=== PATIENT | male | born 1985 | race American Indian/Alaskan Native ===

== ENCOUNTER 2016-12-23 11:27 | Emergency (ER) | payer SELFPAY ==
--- NOTE | 2016-12-23 12:17 | Emergency Department Report ---
Chief Complaint: Headache Stated Complaint: ANXIETY AND HEADACHE Time Seen by Provider: 12/23/16 12:15 - HPI History of Present Illness: PT c/o feeling stuck because of his anxiety. PT states he has been having problems with anxiety for 3 years. PT states he feels really nervous. - ROS Review of Systems: + headache + nervous -si/hi - Exam Physical Exam: PT is alert in triage rapid speech gcs 15 MSE screening note: Focused history and physical exam performed. Due to findings the following was ordered: labs, mhe ED Disposition for MSE Condition: Stable
[2016-12-23 12:19] VITALS: BP 117/75
[2016-12-23 12:46] LABS: Urine Drugs of Abuse Note Disclamer
[2016-12-23 13:16] LABS: Bilirubin,Urine NEG (Negative); Blood,Urine NEG (Negative); Ketones,Urine NEG (Negative); Leukocyte Esterase,Urine NEG (Negative); Mucus,Urine 1+ /HPF; Nitrite,Urine NEG (Negative)
[2016-12-23 14:00] LABS: Basophils % (Auto) 0.9 % (0.0-1.8); Eosinophils % (Auto) 2.1 % (0.0-4.3); Hematocrit 42.7 % (35.5-45.6); Hemoglobin 14.3 gm/dl (11.8-15.2); Mean Corpuscular HGB Conc 33 % (32-34); Mean Corpuscular Hemoglobin 31 pg (28-32); Mean Corpuscular Volume 91 fl (84-94); Platelet Count 204 K/mm3 (140-440); Red Blood Count 4.68 M/mm3 (3.65-5.03); Red Cell Distribution Width 14.4 % (13.2-15.2); White Blood Count 4.9 K/mm3 (4.5-11.0)
[2016-12-23 14:27] LABS: Alanine Aminotransferase 13 units/L (7-56); Albumin 4.6 g/dL (3.9-5); Albumin/Globulin Ratio 1.6 %; Alkaline Phosphatase 71 units/L (35-129); Anion Gap 18 mmol/L; BUN/Creatinine Ratio 10.83; Blood Urea Nitrogen 13 mg/dL (9-20); Calcium 9.3 mg/dL (8.4-10.2); Carbon Dioxide 28 mmol/L (22-30); Chloride 97.3 mmol/L (98-107); Glucose 77 mg/dL (75-100); Potassium 4.2 mmol/L (3.6-5.0); Sodium 139 mmol/L (137-145); Total Protein 7.5 g/dL (6.3-8.2)
--- NOTE | 2016-12-23 17:48 | Emergency Department Report ---
ED Anxiety HPI - General Chief Complaint: Anxiety Stated Complaint: ANXIETY AND HEADACHE Time Seen by Provider: 12/23/16 12:15 Source: patient Mode of arrival: Ambulatory - History of Present Illness Initial Comments: 31-year-old male past medical history bipolar disorder presents with complaint of chronic anxiety. Patient states that he has tried to follow up with outpatient psychiatry but has not been able to do so for personal reasons. Patient is awake alert and oriented 3 has somewhat pressured speech but is otherwise cooperative and calm. Patient denies any current homicidal or suicidal ideation. States he has been feeling a little more anxious than usual lately particularly at work. Patient denies any auditory or visual hallucinations. Patient is requesting Adderall as he states he is taken this in the past and it has helped him focus. I asked patient if he had a official prescription for Adderall and he stated that he does not that he has used it from friends and family members in the past. Patient denies any fevers chills nausea vomiting chest pain although he does state he does get palpitations occasionally when he is severely anxious. Currently does not feel particularly anxious. Denies headache blurry vision which chest pain. Patient is adamant that medications help his symptoms. MD Complaint: anxiety Onset/Timin -: year(s) Symptoms: palpitations Place: home, work Previous History of Same: Yes Severity: moderate Quality: intermittant Provoking factors: work/job stress - Related Data Home Medications: Previous Rx's Medication Instructions Recorded Last Taken Type Hydroxyzine HCl 25 mg PO Q8H PRN #20 tablet 12/23/16 Unknown Rx Allergies/Adverse Reactions: Allergies Allergy/AdvReac Type Severity Reaction Status Date / Time No Known Allergies Allergy Verified 12/23/16 12:23 ED Review of Systems ROS: Stated complaint: ANXIETY AND HEADACHE Other details as noted in HPI Constitutional: denies: chills, fever Eyes: denies: eye pain, eye discharge, vision change ENT: denies: ear pain, throat pain Respiratory: denies: cough, shortness of breath, wheezing Cardiovascular: denies: chest pain, palpitations Endocrine: no symptoms reported Gastrointestinal: denies: abdominal pain, nausea, diarrhea Genitourinary: denies: urgency, dysuria Musculoskeletal: denies: back pain, joint swelling, arthralgia Skin: denies: rash, lesions Neurological: denies: headache, weakness, paresthesias Psychiatric: anxiety. denies: depression Hematological/Lymphatic: denies: easy bleeding, easy bruising ED Past Medical Hx - Past Medical History Hx Psychiatric Treatment: Yes (Bipolar. Off meds needs to be back on.) - Surgical History Past Surgical History?: No - Social History Smoking Status: Current Every Day Smoker - Medications Home Medications: Home Medications Medication Instructions Recorded Confirmed Last Taken Type Hydroxyzine HCl 25 mg PO Q8H PRN #20 tablet 12/23/16 Unknown Rx ED Physical Exam - General Limitations: No Limitations General appearance: alert, in no apparent distress - Head Head exam: Present: atraumatic, normocephalic - Eye Eye exam: Present: normal appearance, PERRL, EOMI - ENT ENT exam: Present: mucous membranes moist - Neck Neck exam: Present: normal inspection, full ROM - Respiratory Respiratory exam: Present: normal lung sounds bilaterally. Absent: respiratory distress - Cardiovascular Cardiovascular Exam: Present: regular rate, normal rhythm. Absent: systolic murmur, diastolic murmur, rubs, gallop - GI/Abdominal GI/Abdominal exam: Present: soft, normal bowel sounds - Rectal Rectal exam: Present: deferred - Extremities Exam Extremities exam: Present: normal inspection - Back Exam Back exam: Present: normal inspection - Neurological Exam Neurological exam: Present: alert, oriented X3, CN II-XII intact - Expanded Neurological Exam Expanded Patient oriented to: Present: person, place, time Cranial nerves: EOM's Intact: Normal, Facial Sensation: Normal Motor strength exam: RUE: 5, LUE: 5, RLE: 5, LLE: 5 Best Eye Response ([place]): (4) open spontaneously Best Motor Response ([place]): (6) obeys commands Best Verbal Response (Robbins): (5) oriented Robbins Total: 15 - Psychiatric Psychiatric exam: Present: normal affect, normal mood, anxious - Skin Skin exam: Present: warm, dry, intact, normal color. Absent: rash ED Course Vital Signs 12/23/16 12:16 Temperature 97.9 F Pulse Rate 78 Respiratory 16 Rate Blood Pressure 117/75 O2 Sat by Pulse 100 Oximetry ED Medical Decision Making - Lab Data Result diagrams: 12/23/16 13:39 12/23/16 13:39 Critical care attestation.: If time is entered above; I have spent that time in minutes in the direct care of this critically ill patient, excluding procedure time. ED Disposition Clinical Impression: Anxiety, Drug-seeking behavior Disposition: DC-01 TO HOME OR SELFCARE Is pt being admited?: No Does the pt Need Aspirin: No Condition: Stable Instructions: Anxiety (ED), Generalized Anxiety Disorder (ED), Bipolar Disorder (ED) Prescriptions: Hydroxyzine HCl 25 mg PO Q8H PRN #20 tablet PRN Reason: Anxiety Referrals: SARAH FERREIRA, [LAB/CONTRACT] - 3-5 Days [facility] [Outside] - 3-5 Days [facility] [Provider Group] - 3-5 Days [facility] [Provider Group] - 3-5 Days Forms: Work/School Release Form(ED) Time of Disposition: 17:48
[2016-12-23] MEDS ORDERED: ATARAX PO ONE (18:00)
== END 2016-12-23 18:32 | disposition home or self-care (01) ==
LOC: ED 11:27
DX: F41.9 Anxiety disorder, unspecified (principal); F31.9 Bipolar disorder, unspecified; F17.210 Nicotine dependence, cigarettes, uncomplicated; Z76.5 Malingerer [conscious simulation]
CPT/HCPCS: 36415; 80053; 80307; 81001; 85025; 99284; G0480; 80320